=== PATIENT | male | born 1985 | race Caucasian/White ===

== ENCOUNTER 2025-04-28 19:04 | Emergency (ER) | payer BC, OTHER ==
[2025-04-28] MEDS ORDERED: HYDROcodone/Acetaminophen 10/325 mg Tablet ONE (19:56)
[2025-04-28] MEDS ORDERED: Cephalexin 500 MG CAP ONE (19:57)
[2025-04-28] MEDS ORDERED: Bacitracin 1 PK ONE (19:57)
== END 2025-04-28 20:25 | disposition home or self-care (01) ==
LOC: NAV ERS 19:04
DX: S61.200A Unspecified open wound of right index finger without damage to nail, initial encounter (principal); F17.210 Nicotine dependence, cigarettes, uncomplicated; W31.89XA Contact with other specified machinery, initial encounter
CPT/HCPCS: 12001; 99283